=== PATIENT | female | born 1995 | race Asian ===

== ENCOUNTER 2017-05-10 04:01 | Emergency (ER) | payer MEDICAID ==
[~2017-05-10] VITALS: Ht 162.6 cm; Wt 50.0 kg
[2017-05-10] MEDS: CEPHALEXIN MONOHYDRATE 500 MG CAPSULE PO ONE (05:04)
[2017-05-10] MEDS: ACETAMINOPHEN/CODEINE 300-30 MG TABLET PO ONE (05:04)
[2017-05-10] MEDS: NEOMYCIN/POLYMYXIN B/HYDROCORT 10 ML OTIC SUSPENSION AS ONE (05:05)
[2017-05-10 05:59] VITALS: BP 111/73
== END 2017-05-10 05:57 | disposition home or self-care (01) ==
LOC: EMS 04:04
DX: H60.92 Unspecified otitis externa, left ear (principal); M54.2 Cervicalgia
CPT/HCPCS: 99284